=== PATIENT | male | born 1985 | race Caucasian/White ===

== ENCOUNTER 2019-08-03 01:03 | Emergency (ER) | payer MEDICAID ==
[~2019-08-03] VITALS: Ht 175.3 cm; Wt 68.0 kg
--- NOTE | 2019-08-03 01:11 | NUR ---
Dr. Gaytan at bedside for MSE.
[2019-08-03] MEDS ORDERED: ONDANSETRON 4 MG/2 ML VIAL IV ONE (01:15)
[2019-08-03] MEDS ORDERED: IV NORMAL SALINE 1000 ML BAG IV ONE (01:15)
[2019-08-03] MEDS ORDERED: KETOROLAC TROMETHAMINE 15 MG INJ IVP ONE (01:15)
[2019-08-03] MEDS ORDERED: KETOROLAC TROMETHAMINE 30 MG INJ ONE (01:25)
[2019-08-03] MEDS ORDERED: ONDANSETRON 4 MG/2 ML VIAL ONE (01:26)
[2019-08-03 01:36] LABS: BASOPHILS # (AUTO) 0.1 K/uL (0.0-8.0); BASOPHILS % (AUTO) 0.9 % (0.0-2.0); EOSINOPHILS # (AUTO) 0.2 K/uL (0.0-0.7); EOSINOPHILS % (AUTO) 3.3 % (0.0-7.0); HEMATOCRIT 46.4 % (36.7-47.1); HEMOGLOBIN 16.1 g/dL (12.5-16.3); LYMPHOCYTES # (AUTO) 2.3 K/uL (20.0-40.0); LYMPHOCYTES % (AUTO) 32.6 % (20.5-51.5); MEAN CORPUSCULAR HGB CONC 35 g/dL (32.5-36.3); MEAN CORPUSCULAR VOLUME 89.3 fL (73.0-96.2); MONOCYTES # (AUTO) 0.5 K/uL (2.0-10.0); MONOCYTES % (AUTO) 6.7 % (0.0-11.0); NEUTROPHILS # (AUTO) 4.1 K/uL (1.8-8.9); NEUTROPHILS % (AUTO) 56.5 % (38.5-71.5); PLATELET COUNT (AUTO) 186 K/uL (152-348); RED BLOOD CELL COUNT(AUTO) 5.19 MIL/uL (4.06-5.63); WHITE BLOOD COUNT (AUTO) 7.2 K/uL (3.6-10.2)
[2019-08-03 01:39] LABS: CREATININE 1.2 mg/dL (0.6-1.3)
--- NOTE | 2019-08-03 01:45 | NUR ---
Patient provided urine sample, sent to lab. Pt out of ER for CT.
[2019-08-03 01:47] LABS: BILIRUBIN,DIRECT 0.1 mg/dL (0.0-0.2); BILIRUBIN,TOTAL 0.5 mg/dL (0.2-1.0); TOTAL PROTEIN, SERUM 7.7 g/dL (6.4-8.2)
--- NOTE | 2019-08-03 01:56 | NUR ---
Pt back to ER from CT.
[2019-08-03 02:08] LABS: *BILIRUBIN,URIN NEGATIVE (NEGATIVE); *BLOOD, URINE 3+ (NEGATIVE); *COLOR,URINE YELLOW (YELLOW); *KETONES,URINE NEGATIVE (NEGATIVE); *UROBILINOGEN,URINE 0.2 E.U./dl (NORMAL); LEUKOCYTE ESTERASE ,URINE NEGATIVE (NEGATIVE); NITRITE, URINE NEGATIVE (NEGATIVE); PH,URINE 5.5 (5.0-8.0); UGLUCOSE NEGATIVE (NEGATIVE)
[2019-08-03 02:09] LABS: *CLARITY,URINE HAZY (CLEAR)
--- NOTE | 2019-08-03 02:12 | NUR ---
Pt states pain is tolerable right now and doesn't need anymore pain meds at the moment.
[2019-08-03 02:20] LABS: BACTERIA,URINE NONE SEEN /HPF (NONE SEEN); RBC,URINE 50-80 /HPF (0-3); SQUAMOUS EPITHELIAL CELL,UR FEW /HPF (NONE SEEN); WBC,URINE 0-3 /HPF (0-3)
[2019-08-03] MEDS ORDERED: TAMSULOSIN HCL 0.4 MG CAP.SR.24H ONE (02:55)
[2019-08-03] MEDS ORDERED: TAMSULOSIN HCL 0.4 MG CAP.SR.24H PO ONE (03:00)
--- NOTE | 2019-08-03 03:13 | NUR ---
Patient discharged to home in stable conditon. Written and verbal after care instructions given. Patient verbalizes understanding of instructions. Pt ambulated out of ER with steady gait, no acute signs of distress, VSS, all belongings taken, IV site discontinued.
[2019-08-03 03:15] VITALS: BP 125/70
== END 2019-08-03 03:15 | disposition home or self-care (01) ==
LOC: ER 01:05
DX: N23 Unspecified renal colic (principal)
CPT/HCPCS: 36415; 74176; 80048; 80076; 81000; 81001; 85025; 96374; 96375; 99284; J1885; J2405; A4663; J7030